=== PATIENT | female | born 1985 | race African-American/Black ===

== ENCOUNTER 2020-02-28 11:17 | Emergency (ER) | payer SELFPAY ==
[~2020-02-28] VITALS: Ht 162.6 cm; Wt 86.3 kg
[2020-02-28 11:27] VITALS: BP 128/59
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
--- NOTE | 2020-02-28 12:17 | RAD ---
FOREARM RIGHT History: Reason: mid lateral forearm swelling and tenderness after injury / Spl. Instructions: / History: Technique: 2 views right forearm Comparison: None. Findings: Normal alignment. No fracture. Posterior forearm soft tissue swelling. Impression: 1. No acute osseous abnormality. Electronically signed by: Montana Sifuentes DO (02/28/2020 12:14 PM) [id number]
[2020-02-28] MEDS ORDERED: IBUP-1007 PO (12:24)
== END 2020-02-28 12:34 | disposition home or self-care (01) ==
LOC: ER 11:17
DX: S50.11XA Contusion of right forearm, initial encounter (principal); R60.0 Localized edema; Y29.XXXA Contact with blunt object, undetermined intent, initial encounter; Y93.89 Activity, other specified; Y92.89 Other specified places as the place of occurrence of the external cause; Y99.8 Other external cause status
CPT/HCPCS: 73090; 99283

== ENCOUNTER 2020-09-17 14:15 | Emergency (ER) | payer SELFPAY ==
[~2020-09-17 14:15] MED LIST: IBUP-1007 PO
== END 2020-09-17 15:30 | disposition left against medical advice (07) ==
LOC: ER 14:15
DX: M25.539 Pain in unspecified wrist (principal); Z53.21 Procedure and treatment not carried out due to patient leaving prior to being seen by health care provider

== ENCOUNTER 2020-09-21 15:13 | Emergency (ER) | payer SELFPAY ==
[~2020-09-21] VITALS: Ht 162.6 cm; Wt 68.7 kg
[2020-09-21 16:27] VITALS: BP 127/80
--- NOTE | 2020-09-21 17:28 | RAD ---
Left wrist 3 views. HISTORY: Pain, recent fracture 3 views were taken of the left wrist. There is a fracture of the distal ulna without displacement. Th ere is mild callus formation. There is a fracture the distal radius without displacement. There is mi ld sclerosis from partial interval healing although the fracture line is still evident. I do not have recent study for comparison. IMPRESSION: 1. Fractures distal radius and ulna in good alignment and position. 2. Mild sclerosis and callus suggesting some healing. 3. No recent study for comparison. Electronically signed by: Ivan Barboza MD (09/21/2020 5:26 PM) [facility]
--- NOTE | 2020-09-21 17:37 | ED.ADGEN ---
Past Medical History Past Medical History: No Pertinent History Past Surgical History: No Surgical History Smoking Status: Current Every Day Smoker Alcohol Use: Occasionally General Adult EDM: Chief Complaint: UPPER EXTREMITY INJURY HPI: HPI: Patient is a 35 year old AA female who presents emergency department with complaints of pain in her left wrist. Patient reports that a month ago she had fallen and was evaluated at another hospital where she was diagnosed with fractures of her left radius and ulna. Patient was placed in a splint at that time but never followed up with Ortho. She reports that she took the splint off last week but the pain has gotten worse. Patient states that taking the splint off did help to relieve some of the pain but she continues to have constant pain and swelling. She currently rates her discomfort a 7 out of 10 on the pain scale, she denies any alleviating factors the pain is worse with movement and palpation. Patient denies any numbness, tingling, or decreased sensation of the affected extremity. Patient is dominantly right-handed. Review of Systems: Review of Systems: Complete ROS is negative unless otherwise noted in HPI. Allergies: Allergies: Allergies Coded Allergies Type Severity Reaction Last Updated Verified hydrochlorothiazide Allergy Mild rash 02/28/20 Yes Physical Exam: PE: See Above Constitutional: Well developed, well nourished, no acute distress, non-toxic appearance. [] HENT: Normocephalic, atraumatic, bilateral external ears normal, nose normal. [] Eyes: PERRLA, EOMI, conjunctiva normal, no discharge. [] Neck: Normal range of motion, no stridor. [] Cardiovascular:Heart rate regular rhythm Lungs & Thorax: Respirations even and unlabored, no retractions, no respiratory distress Skin: Warm, dry, no erythema, no rash. [] Extremities: Left wrist: 2+ radial pulse, 1+ edema with no obvious deformity or crepitus, no cyanosis, ROM limited due to pain, sensation intact, Neurologic: Alert and oriented X 3, normal sensory, no focal deficits noted. [] Psychologic: Affect normal, judgement normal, mood normal. [] Current Patient Data: Vital Signs: Vital Signs Date Time Temp Pulse Resp B/P (MAP) Pulse Ox O2 Delivery O2 Flow Rate FiO2 09/21/21 16:27 97.8 64 18 127/80 (96) 96 Room Air 97.8 EKG: EKG: [] Heart Score: C/O Chest Pain: No Risk Scores: Score 0 - 3: 2.5% MACE over next 6 weeks - Discharge Home Score 4 - 6: 20.3% MACE over next 6 weeks - Admit for Clinical Observation Score 7 - 10: 72.7% MACE over next 6 weeks - Early Invasive Strategies Radiology/Procedures: Radiology/Procedures: PROCEDURE: WRIST 3V LEFT Left wrist 3 views. HISTORY: Pain, recent fracture 3 views were taken of the left wrist. There is a fracture of the distal ulna without displacement. There is mild callus formation. There is a fracture the distal radius without displacement. There is mild sclerosis from partial interval healing although the fracture line is still evident. I do not have recent study for comparison. IMPRESSION: 1. Fractures distal radius and ulna in good alignment and position. 2. Mild sclerosis and callus suggesting some healing. 3. No recent study for comparison. [] Course & Med Decision Making: Course & Med Decision Making Pertinent Labs and Imaging studies reviewed. (See chart for details) I spoke with about this patient and advised of need for follow-up in his office. Patient placed in a volar dorsal splint as recommended by Dr. Cade [] Dragon Disclaimer: Radha Disclaimer: This electronic medical record was generated, in whole or in part, using a voice recognition dictation system. Departure Departure Impression: Primary Impression: Closed fracture of left distal radius and ulna Disposition: HOME / SELF CARE / HOMELESS Condition: STABLE Referrals: MAYA CADE MD Patient Instructions: Wrist Fracture, [id number] Additional Instructions: Tylenol ibuprofen as needed for pain.. Recommend application of ice, elevation, and rest of affected extremity. Wear the splint that was placed until follow up appointment with Dr. Cade. Return to the ER if your symptoms worsen. Splinting Splinting : Location: Left wrist Hand-Made Type: orthoglass (Volar dorsal) Splint: wrist Pre-Proc Neuro Vasc Exam: normal Post-Proc Neuro Vasc Exam: normal, unchanged from pre-exam Problem Qualifiers Primary Impression: Closed fracture of left distal radius and ulna Encounter type: initial encounter Qualified Codes: S52.502A - Unspecified fracture of the lower end of left radius, initial encounter for closed fr acture; S52.602A - Unspecified fracture of lower end of left ulna, initial encounter for closed fracture SISSY GARCIAS APRN Sep 21, 2020 17:37
== END 2020-09-21 18:37 | disposition home or self-care (01) ==
LOC: ER 15:13
DX: S52.502A Unspecified fracture of the lower end of left radius, initial encounter for closed fracture (principal); S52.602A Unspecified fracture of lower end of left ulna, initial encounter for closed fracture; F17.200 Nicotine dependence, unspecified, uncomplicated; Z88.5 Allergy status to narcotic agent; W18.39XA Other fall on same level, initial encounter; Y93.89 Activity, other specified; Y92.89 Other specified places as the place of occurrence of the external cause; Y99.8 Other external cause status
CPT/HCPCS: 29125; 73120; 99283